=== PATIENT | male | born 1955 ===

== ENCOUNTER 2017-09-24 07:33 | Day surgery (SDC) | payer OTHER, MEDICAID ==
[2017-09-10 09:57] VITALS: BMI 45.8
[~2017-09-24 07:33] MED LIST: Lidocaine 1%/Epinephrine 1:100000 30 ml vial IJ ONE
[2017-09-24] MEDS ORDERED: Bupivacaine HCl 0.25% PF (10 ml) Inj ONE ×3 (07:41→09:31)
[2017-09-24] MEDS ORDERED: ceFAZolin IV 2 gm in Dextrose 2 GM/50 ML BAG IVPB ONE (07:42)
[2017-09-24] MEDS ORDERED: Lactated Ringer's 1,000 ML IV ONE ×2 (08:35)
[2017-09-24] MEDS ORDERED: HYDROmorphone 0.5 mg/0.5 ml ISec IVP PRN (10:25)
[2017-09-24] MEDS ORDERED: Albuterol 0.083% Inhal Sol (2.5 mg/3 mL) UD INH PRN (10:25)
[2017-09-24] MEDS ORDERED: Oxycodone/Acetaminophen 5/325 mg Tab PO ONE (13:02)
--- NOTE | 2017-09-24 13:09 | PCM.SURG1 ---
Surgeon's Initial Post Op Note - Surgeon's Notes Surgeon: Tahir Dual Hose Cementer: PGY4 Type of Anesthesia: General Endo, Block Regional Pre-Operative Diagnosis: Umbilical Hernia Operative Findings: see op note Post-Operative Diagnosis: Umbilical hernia, ventral hernias Operation Performed: Robotic assisted umbilical hernia repair w/ mesh. Robotic assisted ventral hernia repair w/ mesh. Robotic assisted diastasis recti repair w/ mesh. Tap block. Specimen/Specimens Removed: Hernia sac contents Estimated Blood Loss: EBL {In ML}: 20 Blood Products Given: N/A Drains Used: No Drains Post-Op Condition: Good Date of Surgery/Procedure: 09/24/17 Time of Surgery/Procedure: 08:35
[2017-09-24 15:29] VITALS: PULSE 110
[2017-09-24 16:12] VITALS: O2SAT 93
[2017-09-24 16:40] VITALS: BP 112/70; RESP 20; TEMP 97
--- NOTE | 2017-09-25 05:53 | OP ---
PROCEDURE DATE: 09/23/2017 PREOPERATIVE DIAGNOSES: 1. Umbilical hernia. 2. Diastasis of recti. POSTOPERATIVE DIAGNOSES: 1. Incarcerated umbilical hernia. 2. Supraumbilical ventral hernia. 3. Diastasis of recti of approximately 15 cm with 4 cm width. PROCEDURES PERFORMED: 1. Robotic umbilical hernia repair with mesh. 2. Robotic ventral hernia repair with mesh. 3. Robotic diastasis of recti repair with mesh. 4. Laparoscopic bilateral TAP block placement. SURGEON: Ramón Haro MD. LOOM SETTER: SHARON Ugalde; and Nick Byrd, PGY-4 resident. TYPE OF ANESTHESIA: General endotracheal tube anesthesia. ESTIMATED BLOOD LOSS: Around 20 mL. DRAINS: None. PATHOLOGY: 1. Umbilical hernial sac and content was sent for the pathology. 2. Ventral hernial sac and content were sent for the pathology. COMPLICATIONS: None. INTRAOPERATIVE FINDINGS: Patient had approximately a 4 x 4 cm large umbilical hernia as well as the patient had 3 x 2 cm supraumbilical ventral hernia, and patient had a 15-cm long diastasis of recti with 4 cm width. DESCRIPTION OF PROCEDURE: On intraoperative steps, this is a 61-year-old male who was diagnosed with a large umbilical hernia and patient also had diastasis of recti. Patient was consented for the robotic umbilical hernia repair with mesh with diastasis of recti repair. Patient was brought to the OR, placed supine on the operating table. After induction of the anesthesia, the abdomen was prepped and draped in usual sterile fashion. The Novoa catheter was placed, and using the Visiport technique, a 5-mm incision was made and peritoneal cavity was entered. Pneumo was cerated. Three 8-mm ports were placed in the flank, and robot was brought in. Camera arm as well as arm 1 and arm 2 were docked. Patient was found to have omental adhesion. So, omental adhesion was lysed and it was reduced back into the peritoneal cavity. Patient also had squishy defects surrounding the umbilical defect. The dissection was carried down and patient was found to have another ventral hernia, approximately 3 x 2 cm size, approximately 4 cm above umbilical defect, and the content was reduced. The diastasis of recti defect was marked with electrocautery. Now the umbilical hernia repair was done with #1 Prolene V-Loc suture. Ventral hernia repair was also done with #1 Prolene V-Loc suture in 2 layers. The diastasis of recti was also repaired with #1 Prolene V-Loc suture in 2 layers after mobilizing the rectus muscles medially. After that, a 25 x 15 cm large mesh was introduced and mesh was implanted. After proper implantation of the mesh, the bilateral TAP block was given. The 15:15 mL of Marcaine was given in the right and left side, total of 60 mL of Marcaine was given as a TAP block. After proper TAP block, all the ports were taken out under vision. Pneumo was deflated. All the port sites were closed in two layers; the subcutaneous with 2-0 Vicryl, skin with 4-0 Monocryl; and dry sterile dressing was applied. Patient tolerated the procedure well. Count of instrument and gauze was correct. There was no apparent complication. Ramón Haro MD
== END 2017-09-24 16:43 | disposition home or self-care (01) ==
LOC: C.SDS 07:33
PROVIDERS: ATTEND Surgery Surgical Critical Care
DX: K42.0 Umbilical hernia with obstruction, without gangrene (principal); K43.9 Ventral hernia without obstruction or gangrene; E11.9 Type 2 diabetes mellitus without complications
CPT/HCPCS: 31500; 49653; 64488; 82948; 88302; 94002; 94660; 94761; C1781; J0690; J7120